=== PATIENT | female | born 1995 | race Two or more races ===

== ENCOUNTER 2023-03-25 16:22 | Emergency (ER) | payer BC ==
[~2023-03-25] VITALS: Ht 165.1 cm; Wt 81.6 kg
[2023-03-25] MEDS ORDERED: VALA500T PO (16:32)
[2023-03-25] MEDS ORDERED: ONDA4TAB5 SL (16:32)
[2023-03-25] MEDS ORDERED: CENO200T PO (16:38)
[2023-03-25] MEDS ORDERED: LORA-259 (16:38)
[2023-03-25] MEDS ORDERED: METR-147 PO (16:38)
[2023-03-25] MEDS ORDERED: LACO200T2 (16:38)
[2023-03-25] MEDS ORDERED: BRIV100T PO (16:38)
[2023-03-25] MEDS ORDERED: FOLI1TAB27 PO (16:38)
[2023-03-25 17:01] LABS: BASOPHILS # (AUTO) 0.1 K/UL (0.0-0.2); BASOPHILS % (AUTO) 2.8 % (0.0-2.0); EOSINOPHILS # (AUTO) 0.1 K/uL (0.0-0.7); EOSINOPHILS % (AUTO) 2.5 % (0.0-7.0); HEMATOCRIT 36.7 % (31.2-41.9); HEMOGLOBIN 12.4 g/dL (10.9-14.3); LYMPHOCYTES # (AUTO) 0.7 K/uL (0.8-4.8); LYMPHOCYTES % (AUTO) 16.2 % (20.5-51.5); MEAN CORPUSCULAR HGB CONC 34 g/dL (32.3-35.6); MEAN CORPUSCULAR VOLUME 91.5 fL (75.5-95.3); MONOCYTES # (AUTO) 0.3 K/uL (0.1-1.30); MONOCYTES % (AUTO) 6.1 % (0.0-11.0); NEUTROPHILS # (AUTO) 3.2 K/uL (1.8-8.9); NEUTROPHILS % (AUTO) 72.4 % (38.5-71.5); PLATELET COUNT (AUTO) 265 K/uL (179-408); RED BLOOD CELL COUNT(AUTO) 4.01 MIL/uL (3.63-4.92); RED CELL DISTRIBUTION WIDTH 13.4 % (12.3-17.7); WHITE BLOOD COUNT (AUTO) 4.4 K/uL (3.8-11.8)
[2023-03-25 17:04] LABS: DIFFERENTIAL COMMENT 1
[2023-03-25 17:11] LABS: AMMONIA 12 umol/L (11-32); CALCIUM 8.6 mg/dL (8.5-10.1); CARBON DIOXIDE 28 mmol/L (21-32); CHLORIDE 105 mmol/L (98-107); CREATININE 0.6 mg/dL (0.6-1.3); GLUCOSE 115 mg/dL (74-106); POTASSIUM 4.3 mmol/L (3.5-5.1); SODIUM SERUM 141 mmol/L (136-145); UREA NITROGEN, BLOOD 9 mg/dL (7-18)
[2023-03-25 17:18] LABS: ETHANOL < 3 MG/DL (0-10)
[2023-03-25 17:19] LABS: ALANINE AMINOTRANSFERASE 15 U/L (14-59); ALBUMIN 3.3 g/dL (3.4-5.0); ALKALINE PHOSPHATASE 56 U/L (50-136); ASPARTATE AMINOTRANSFERASE 8 U/L (15-37); BILIRUBIN,DIRECT 0.1 mg/dL (0.0-0.2); BILIRUBIN,TOTAL 0.2 mg/dL (0.2-1.0); TOTAL PROTEIN, SERUM 6.8 g/dL (6.4-8.2)
[2023-03-25 17:23] LABS: THYROID STIMULATING HORMONE 1.439 mIU/mL (0.358-3.740)
[2023-03-25 17:32] LABS: ACETAMINOPHEN < 2.0 ug/mL (10-30)
[2023-03-25 17:36] LABS: *BILIRUBIN,URIN NEGATIVE (NEGATIVE); *BLOOD, URINE NEGATIVE (NEGATIVE); *CLARITY,URINE CLEAR (CLEAR); *COLOR,URINE YELLOW (YELLOW); *KETONES,URINE NEGATIVE (NEGATIVE); *PROTEIN,URINE NEGATIVE (NEGATIVE); *UROBILINOGEN,URINE 0.2 E.U./dl (NORMAL); LEUKOCYTE ESTERASE ,URINE TRACE (NEGATIVE); NITRITE, URINE NEGATIVE (NEGATIVE); UGLUCOSE NEGATIVE (NEGATIVE)
[2023-03-25 17:47] LABS: *AMPHETAMINE, URINE NEGATIVE (NEGATIVE); *BARBITURATE, URINE NEGATIVE (NEGATIVE); *BENZODIAZEPINE, URINE POSITIVE (NEGATIVE); *CANNABINOID, URINE NEGATIVE (NEGATIVE); *COCCAINE, URINE NEGATIVE (NEGATIVE); *OPIATE, URINE NEGATIVE (NEGATIVE); *PHENCYCLIDINE SCREEN,URINE NEGATIVE (NEGATIVE)
[2023-03-25 17:48] LABS: *URINE HCG, QUAL NEGATIVE (NEGATIVE); BACTERIA,URINE FEW /HPF (NONE SEEN); SQUAMOUS EPITHELIAL CELL,UR FEW /HPF (NONE SEEN)
[2023-03-25 17:49] LABS: FENTANYL, URINE NEGATIVE (NEGATIVE)
[2023-03-25] MEDS ORDERED: LORAZEPAM 2 MG/1 ML VIAL IV ONE (20:45)
[2023-03-25] MEDS ORDERED: IV NS 1000 ML 1,000 ML IV ONE (20:45)
[2023-03-25] MEDS ORDERED: LORAZEPAM 2 MG/1 ML VIAL ONE ×2 (20:48→20:53)
[2023-03-25 23:13] VITALS: BP 101/65; TEMP 98.6; O2SAT 99
== END 2023-03-25 23:13 | disposition home or self-care (01) ==
LOC: ER 16:24
DX: G40.802 Other epilepsy, not intractable, without status epilepticus (principal); R10.2 Pelvic and perineal pain
CPT/HCPCS: 80076; 80048; 81001; 82140; 84703; 84443; 85025; 85730; 84484; 84702; 36415; 93005; 71045; 70450; 99285; 96361; 96374; 87086; 80299; 80320; 80307; J2060; J7040; A4606; A4663; G0480